=== PATIENT | male | born 1950 | race Caucasian/White ===

== ENCOUNTER 2019-04-22 10:31 | Outpatient (RCR) | payer OTHER, SELFPAY | END 2019-05-10 23:59 | disposition home or self-care (01) | LOC: SOT 10:31 | PROVIDERS: Family Provider Emergency Medicine Emergency Medical Services; PCP Family Medicine Adult Medicine; Referring Provider Orthopaedic Surgery; Visit Provider Orthopaedic Surgery | DX: Z47.1 Aftercare following joint replacement surgery (principal); Z96.692 Finger-joint replacement of left hand | CPT/HCPCS: 97035; 97110; 97112; 97140; 97165 ==

== ENCOUNTER 2019-05-11 06:00 | Outpatient (RCR) | payer OTHER, SELFPAY | END 2019-06-08 23:59 | disposition home or self-care (01) | LOC: SOT 06:00 | PROVIDERS: Family Provider Emergency Medicine Emergency Medical Services; PCP Family Medicine Adult Medicine; Referring Provider Orthopaedic Surgery; Visit Provider Orthopaedic Surgery | DX: Z47.89 Encounter for other orthopedic aftercare (principal) | CPT/HCPCS: 97035; 97110; 97112; 97140 ==

== ENCOUNTER 2019-06-09 06:00 | Outpatient (RCR) | payer OTHER, SELFPAY | END 2019-07-02 23:00 | disposition home or self-care (01) | LOC: SOT 06:00 | PROVIDERS: Family Provider Emergency Medicine Emergency Medical Services; PCP Emergency Medicine Emergency Medical Services; Referring Provider Orthopaedic Surgery; Visit Provider Orthopaedic Surgery | DX: M18.12 Unilateral primary osteoarthritis of first carpometacarpal joint, left hand (principal) | CPT/HCPCS: 97035; 97110; 97112; 97140 ==

== ENCOUNTER 2019-06-12 11:02 | Outpatient (CLI) | payer OTHER, SELFPAY ==
--- NOTE | 2019-06-12 12:47 | ONCRAD EPV_ITS ---
Radiation Oncology Established Patient Visit Patient: Beryl MR#: [id number] : 1950> Age: 68> Sex: Male> Dictated by: Dr. Jomar Gayle Date of Service: 06/12/2019 Diagnosis: C61 - Malignant neoplasm of prostate, Diagnosed 01/19/2017 (Active) Stage X, T2a, NX, MX Radiotherapy to Date: Course: C1 Treatment Site: [id number] Ref. ID: [id number] Energy: 6X Dose/Fx (cGy): 200 #Fx: Dose Correction (cGy): 0 Total Dose (cGy): 5,400 Start Date: 05/02/2017 End Date: 06/09/2017 Elapsed Days: 38 Course: C1 Treatment Site: [id number] Ref. ID: [id number] Energy: 6X Dose/Fx (cGy): 200 #Fx: Dose Correction (cGy): 0 Total Dose (cGy): 800 Start Date: 06/12/2017 End Date: 06/15/2017 Elapsed Days: 3 Course: C1 Treatment Site: [id number] Ref. ID: [id number] Energy: 6X Dose/Fx (cGy): 200 #Fx: 8 Dose Correction (cGy): 0 Total Dose (cGy): 1,600 Start Date: 06/19/2017 End Date: 06/28/2017 Elapsed Days: 9 Chief Complaint / History of Present Illness: The patient is a 66 year old gentleman diagnosed with T2a, N0, M0 adenocarcinoma of the prostate, [place] score 3+4, PSA 8 ng/ml, intermediate risk disease, s/p combination therapy of ADT + EBRT. He completed ADT after receiving his last injection of one month Eligard in early September 2017. His urinary symptoms has significantly improved compared with that before RT. He has nocturia ???1-2 times per night but denies dysuria, urgency, frequency, weak stream, hematuria or feeling of not emptying bladder after urination. He denies rectal irritation or bleeding. His PSA was 0.13 on 02/20/2018, 0.11 on 08/14/2018 and 0.14 on 02/19/2019. Current Medications: Centrum Silver, glucosamine HCl, magnesium, naproxen Sodium, omeprazole, pravastatin Sodium. Allergies: Penicillins. Current Complaints / Review of Systems: Constitutional - Complains of moderate fatigue. Denies lack of appetite, fever, night sweats and change in weight. Eyes - Denies blurred vision. ENMT - Complains of tinnitus. Denies dysphagia, ear pain, mouth dryness, stomatitis and altered taste. Neck - Complains of neck pain which is chronic. Integumentary - Denies rash. Cardiovascular - Denies arrhythmias and chest pain. Respiratory - Complains of dyspnea associated with normal activity. Denies cough and wheezing. Gastrointestinal - Complains of occasional constipation. Complains of occasional diarrhea. Complains of heartburn / dyspepsia. Complains of hemorrhoids. Denies abdominal pain, melena / GI bleeding, nausea and vomiting. Genitourinary (M) - Complains of nocturia gets up about 1 to 2 times per night. Denies dysuria, frequency, hematuria and urgency. Musculoskeletal - Complains of arthritis and joint pain in the lower back, knees, and both thumbs. Denies bone pain. Neurologic - Denies dizziness, abnormal gait and headaches. Endocrine - Denies diabetes and thyroid disease. Hematologic/Lymphatic - Denies tender or enlarged lymph nodes.. Vital Signs: Performed on 06/12/2019 11:23 AM BMI - 25.833 kg/m2 (high), Height - 73.00 in, Weight - 195.8 lbs, Temperature - 97.8 f, Pulse - 89, Respiration - 18, O2 Sat - 97 %, Pain - 2 and BP - 129/ 84 mm(hg). Physical Exam: General: Alert and oriented x 3. No acute distress. HEENT: Normocephalic, atraumatic. Extraocular Movements Intact: Pupils Equal, Round, Reactive to Light and Accommodation: Sclerae anicteric. Oral cavity is clear without lesions, masses or ulcers. NECK: Supple without supraclavicular or jugular lymphadenopathy. LUNGS: Clear to auscultation bilaterally without rales, rhonchi or wheeze. HEART: Regular rate and rhythm, normal S1 and S2 without murmur, gallop or rub. MUSCULOSKELETAL: No tenderness or percussion pain over the axial skeleton, scapulae or pelvis. ABDOMEN: Soft, nontender, nondistended without masses or organomegaly. Bowel sounds are present. EXTREMITIES: No peripheral edema is identified. Limited motor and sensory examination are grossly intact and symmetric bilaterally. NEUROLOGIC: Cranial nerves II ???XII are grossly intact. Normal sensation, strength 5/5 in all extremities, normal gait, no ataxia. Performance Status: 1 - No physically strenuous activity, but ambulatory and able to carry out light or sedentary work (e.g. office work, light house work). (ECOG) Lab: see HPI Pathology: adenocarcinoma of prostate Imaging: none pending Impression: There is no clinical evidence of recurrent prostate cancer and no evidence of late radiation toxicities. Plan: The patient will check PSA at [facility] in about 3 months and then follow up with us afterwards. He is instructed to contact us with any questions or issues. Signed by: 06/12/2019 12:45:40 PM <<Signature on File>> CPT Code: CPT Code: Signed By: Dr. Jomar Gayle, 06/12/2019 12:45:41 PM <<Signature on File>>
== END 2019-06-12 11:03 | disposition home or self-care (01) ==
PROVIDERS: Family Provider Emergency Medicine Emergency Medical Services; PCP Emergency Medicine Emergency Medical Services; Visit Provider Radiology Radiation Oncology
DX: Z08 Encounter for follow-up examination after completed treatment for malignant neoplasm (principal); Z85.46 Personal history of malignant neoplasm of prostate; Z92.3 Personal history of irradiation
CPT/HCPCS: 99213

== ENCOUNTER → 2020-01-27 15:53 | Outpatient (BNVA) | payer OTHER, SELFPAY | PROVIDERS: PCP Emergency Medicine Emergency Medical Services; Visit Provider Emergency Medicine Emergency Medical Services | DX: Z11.59 Encounter for screening for other viral diseases (principal); Z20.828 Contact with and (suspected) exposure to other viral communicable diseases | CPT/HCPCS: 87635 ==

== ENCOUNTER → 2021-01-20 13:24 | Outpatient (BNVA) | payer OTHER, SELFPAY | PROVIDERS: PCP Emergency Medicine Emergency Medical Services; Visit Provider Surgery | DX: Z01.812 Encounter for preprocedural laboratory examination (principal); Z20.822 Contact with and (suspected) exposure to COVID-19 | CPT/HCPCS: 87635 ==

== ENCOUNTER 2021-01-25 06:40 | Day surgery (SDC) | payer OTHER, SELFPAY ==
[2021-01-21 10:32] VITALS: BMI 25.7
--- NOTE | 2021-01-25 07:00 | W.PM.OPSUD ---
Surgery/Procedure H&P Update DATE OF PROCEDURE: January 25, 2021 DATE H&P PERFORMED: 12/29/20 H&P UPDATE INFORMATION: I have reviewed H&P completed within last 30 days, I have examined patient prior to procedure and No changes to prior documentation PREOP DIAGNOSIS: screening colonoscopy PLANNED PROCEDURE: Operation Date: 01/25/21 08:00 Proposed Procedures p Colonoscopy 23122 R19.5(Not Applicable) - Anthony Hughes MD
--- NOTE | 2021-01-25 08:04 | ANES.PREANE2 ---
Pre-Anesthetic Assessment Pre-Anesthetic Assessment: Height/Weight: Height 1.83 m Weight 86.183 kg Preop Diagnosis: screening colonoscopy Proposed Procedure: Operation Date: 01/25/21 08:00 Proposed Procedures p Colonoscopy 72155 R19.5(Not Applicable) - Anthony Hughes MD Was Beta Keaton taken within 24 hours: N/A Was Clonidine taken within 24 hours: N/A Social: Social History: No alcohol and No tobacco Exam: Pre-Anes Outpt Exam: alert, oriented x 3, clear to auscultation bilaterally and regular rate & rhythm Airway: Submandibular: WNL Cervical ROM: WNL MP: 2 Dentition: Chipped GI: GI: GERD Metabolic: Metabolic: Hyperlipidemia Anesthetic Plan: ASA status: 2 Anesthesia: MAC Risk of > 500 ml blood loss (7ml/kg in children): No PFSH Anesthesia PFSH: Medical History (Updated 12/29/20 @ 10:38 by Anthony Hughes MD) COVID-19 GERD (gastroesophageal reflux disease) Hypercholesteremia Prostate cancer Surgical History (Updated 12/29/20 @ 10:38 by Anthony Hughes MD) H/O arthroscopy of left knee [facility] 2018 H/O arthroscopy of right knee [facility] 2017 Status post colonoscopy Family History (Updated 12/29/20 @ 10:32 by Stan Palacios) Brother Cancer Denies family history of Anesthesia complication Bleeding disorder Social History (Updated 12/29/20 @ 10:34 by Stan Palacios) Smoking and tobacco status: never smoked Alcohol intake: never History of recent travel: No Data Anesthesia Cardiac Studies: No Data to Display
[2021-01-25 08:06] VITALS: BP 150/96; PULSE 84; RESP 16; TEMP 36.6; O2SAT 96
[2021-01-25] MEDS: sodium chloride 0.9% 1,000 ML 30 ML IV (08:20)
[2021-01-25 09:07] VITALS: BP 121/71; PULSE 73; RESP 16; TEMP 36.1; O2SAT 95
[2021-01-25 09:18] VITALS: BP 125/81; PULSE 77; RESP 18; O2SAT 97
--- NOTE | 2021-01-25 15:53 | ANE.PACU2 ---
Inpatient post-anesthesia follow up: Airway intact: Yes Vital signs: Temperature 97.0 F Pulse Rate 77 Respiratory Rate 18 Blood Pressure 125/81 Pulse Oximetry 97 Oxygen Delivery Me thod Room Air Oxygen Flow Rate 4 Fraction of Inspir ed Oxygen Hydration adequate: Yes Nausea and vomiting: No Pain level: 1 Mental status: Baseline
== END 2021-01-25 09:37 | disposition home or self-care (01) ==
PROVIDERS: PCP Emergency Medicine Emergency Medical Services; Visit Provider Surgery
PROC: 0DJD8ZZ Inspection of Lower Intestinal Tract, Via Natural or Artificial Opening Endoscopic (ICD-10-PCS; CPT 45378; principal; 2021-01-25 08:00)
DX: Z12.11 Encounter for screening for malignant neoplasm of colon (principal); K57.30 Diverticulosis of large intestine without perforation or abscess without bleeding; D12.2 Benign neoplasm of ascending colon; D12.5 Benign neoplasm of sigmoid colon; K21.9 Gastro-esophageal reflux disease without esophagitis; E78.5 Hyperlipidemia, unspecified; Z86.16 Personal history of COVID-19; E78.00 Pure hypercholesterolemia, unspecified; Z85.46 Personal history of malignant neoplasm of prostate
CPT/HCPCS: 45380; 45385; 88305; 96360; J2704; J7030

== ENCOUNTER → 2021-03-18 10:26 | Outpatient (BNVA) | payer OTHER, SELFPAY | PROVIDERS: PCP Emergency Medicine Emergency Medical Services; Visit Provider Internal Medicine | DX: M19.90 Unspecified osteoarthritis, unspecified site (principal); M79.10 Myalgia, unspecified site; Z11.59 Encounter for screening for other viral diseases; Z79.899 Other long term (current) drug therapy | CPT/HCPCS: 99204 ==

== ENCOUNTER 2021-03-18 12:51 | Outpatient (CLI) | payer OTHER, SELFPAY ==
--- NOTE | 2021-03-18 12:57 | XR_ITS ---
WS: [email or web address] Exam: XR cervical spine fl/ex [id number] Date/Time of Exam: 03/18/2021 1:30 PM Reason For Exam: M19.90 - Unspecified osteoarthritis, unspecified site Comparison 10/24/2005. No acute fracture or dislocation. No flexion or extension instability. Degenerative disc change at C6 -7. Mild facet DJD. Normal paraspinal soft tissues. XR/XR cervical spine fl/ex [id number] IMPRESSION: 1. No fracture or malalignment. No instability. 2. Mild degenerative changes.
--- NOTE | 2021-03-18 12:57 | XR_ITS ---
WS: [email or web address] Exam: XR hand LT 2V [id number] Date/Time of Exam: 03/18/2021 1:30 PM Reason For Exam: M19.90 - Unspecified osteoarthritis, unspecified site Exam: XR hand LT 2V [id number] No acute fracture or dislocation. There are surgical absence of the greater multangular. Several smal l bone fragments noted at this site. Degenerative change at the articulation of the scaphoid and less er multangular. Minimal IP joint DJD. No soft tissue foreign bodies. XR/XR hand LT 2V [id number] IMPRESSION: 1. Mild IP joint DJD. 2. Surgical absence of the greater multangular. Degenerative changes at the art iculation of the scaphoid and lesser multangular.
--- NOTE | 2021-03-18 12:57 | XR_ITS ---
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 Findings: The lungs are clear and fully expanded. Costophrenic angles are sharp. No infiltrates. Bronchovascula r relief appears normal. Cardiac silhouette is unremarkable. Bony elements are intact. XR/XR chest 2V* [id number] IMPRESSION: Unremarkable chest radiograph.
--- NOTE | 2021-03-18 12:57 | XR_ITS ---
WS: [email or web address] Exam: XR foot RT 2V [id number] Date/Time of Exam: 03/18/2021 1:30 PM Reason For Exam: M25.50 - Pain in unspecified joint No fracture or dislocation noted. Mild bunion deformity. Plantar heel spur. Vascular calcifications s een along the anterior margin of the ankle XR/XR foot RT 2V [id number] IMPRESSION: 1. No fracture or dislocation. 2. Mild bunion deformity. Calcaneal spur.
--- NOTE | 2021-03-18 12:57 | XR_ITS ---
WS: [email or web address] Exam: XR foot LT 2V [id number] Date/Time of Exam: 03/18/2021 1:30 PM Reason For Exam: M25.50 - Pain in unspecified joint Comparison 03/31/2008. No fracture or dislocation. No soft tissue foreign bodies are seen. Mild subcortical cyst formation n oted in the head of the first metatarsal. No change since prior study. XR/XR foot LT 2V 14701 IMPRESSION: 1. No fracture or other significant finding.
--- NOTE | 2021-03-18 12:57 | XR_ITS ---
WS: [email or web address] Exam: XR hand RT 2V [id number] Date/Time of Exam: 03/18/2021 1:30 PM Reason For Exam: M19.90 - Unspecified osteoarthritis, unspecified site No fracture or dislocation. Moderate osteoarthritis involving the CMC joint of the thumb and the linette culation of the scaphoid and greater and lesser multangular. There is separation of the scaphoid and capitate which may indicate intercarpal ligament tear. Subcortical cyst formation in the capitate. Pa nim[place]osa DJD of the IP joints. XR/XR hand RT 2V [id number] IMPRESSION: 1. Degenerative change at the CMC joint of the thumb and the articulation of th e scaphoid and greater and lesser multangular. 2. Degenerative changes in the IP joints.
--- NOTE | 2021-03-18 12:57 | XR_ITS ---
WS: [email or web address] Exam: XR thoracic spine 3V* [id number] Date/Time of Exam: 03/18/2021 1:30 PM Reason For Exam: M19.90 - Unspecified osteoarthritis, unspecified site No acute fracture or dislocation. Mild dextroscoliosis. Paraspinal soft tissues are unremarkable. XR/XR thoracic spine 3V* [id number] IMPRESSION: 1. No fracture or malalignment. 2. Slight dextroscoliosis.
--- NOTE | 2021-03-18 12:57 | XR_ITS ---
WS: [email or web address] Exam: XR lumbar spine 2-3V* [id number] Date/Time of Exam: 03/18/2021 1:30 PM Reason For Exam: M19.90 - Unspecified osteoarthritis, unspecified site No fracture or dislocation. Degenerative vacuum disc at L4-5. Facet DJD at L5-S1. Slight levoscoliosi s. XR/XR lumbar spine 2-3V* [id number] IMPRESSION: 1. Degenerative changes of the lower lumbar spine but no fracture or malalignme nt. 2. Slight levoscoliosis that may be positional.
--- NOTE | 2021-03-18 12:57 | XR_ITS ---
WS: [email or web address] Exam: XR sacroiliac jts m 3V [id number] Date/Time of Exam: 03/18/2021 1:30 PM Reason For Exam: L40.9 - Psoriasis, unspecified No fracture or dislocation noted. The SI joints are open. No sign of bone destruction. XR/XR sacroiliac jts m 3V [id number] IMPRESSION: 1. Unremarkable right and left SI joints.
[2021-03-18 13:42] LABS: Basophils # 0.1 10^3/uL (0.0-0.1); Basophils % 0.8 %; Eosinophils # 0.1 10^3/uL (0.0-0.8); Eosinophils % 1.8 %; Hematocrit 47.3 % (42.0-52.0); Hemoglobin 15.8 g/dL (11.7-16.6); Lymphocytes # 1.1 10^3/uL (0.8-4.8); Lymphocytes % 16.3 %; Mean Corpuscular HGB Conc 33.4 g/dL (30.0-36.0); Mean Corpuscular Hemoglobin 30.8 pg (28.0-34.0); Mean Corpuscular Volume 92.2 fl (80-94); Mean Platelet Volume 10.4 fL (7.4-10.4); Monocytes # 0.6 10^3/uL (0.2-0.9); Monocytes % 8.4 %; Neutrophils # 4.71 10^3/uL (1.8-7.7); Neutrophils % 72.2 %; Nucleated Red Blood Cells % 0 %; Platelet Count 220 10^3/cmm (130-400); Red Blood Count 5.13 10^6/uL (4.1-5.3); Red Cell Distribution Width 12.4 % (12.1-15.1); White Blood Count 6.5 10^3/uL (4.0-10.0)
[2021-03-18 14:07] LABS: 25 Hydroxy Vitamin D 28 ng/mL (30-100); Alanine Aminotransferase 26 U/L (0-41); Albumin Level 4.3 g/dL (3.5-5.2); Alkaline Phosphatase 100 IU/L (40-130); Anion Gap 12.2 (5-19); Aspartate Amino Transferase 21 U/L (0-40); Blood Urea Nitrogen 16 mg/dL (8-23); Calcium 9.2 mg/dL (8.5-10.5); Carbon Dioxide 28 mmol/L (22-29); Chloride 104 mmol/L (98-107); Creatine Phosphokinase 202 U/L (39-308); Ferritin 246 ng/mL (30-400); Glucose 89 mg/dL (65-115); Iron 80 ug/dL (59-158); Osmolality Calculated 291 mOsm/kg (285-295); Phosphorus 3.6 mg/dL (2.5-4.5); Potassium 4.2 mmol/L (3.5-5.1); Sodium 140 mmol/L (136-145); Thyroid Stimulating Hormone 2.53 uIU/mL (0.27-4.20); Total Bilirubin 0.3 mg/dL (0.15-1.2); Total Protein 7.3 g/dL (6.6-8.7); Uric Acid 4.5 mg/dL (3.4-7.0); Vitamin B12 542 pg/mL (232-1245)
[2021-03-18 14:21] LABS: Hepatitis B Core AB, Total Non-Reactive (Nonreactive); Hepatitis B Surface Antigen Non-Reactive (Nonreactive); Hepatitis C Virus Antibody Non-Reactive (Nonreactive)
[2021-03-19 12:23] LABS: COMPLEMENT, TOTAL (CH50) >60 U/mL (31-60)
[2021-03-19 12:47] LABS: COMPLEMENT COMPONENT C3C 143 mg/dL (82-185); COMPLEMENT COMPONENT C4C 26 mg/dL (15-53)
[2021-03-19 14:00] LABS: Erythrocyte Sedimentation Rate 6 mm/hr (0-10)
[2021-03-19 14:47] LABS: Cyclic Citrullinated Peptide <16 UNITS
[2021-03-19 15:01] LABS: Lymes IGG WB <0.90 index
[2021-03-19 15:35] LABS: THYROID PEROXIDASE ANTIBODIES 1 IU/mL (<9)
[2021-03-19 16:21] LABS: CENTROMERE B ANTIBODY <1.0 NEG AI (<1.0 NEG); JO-1 ANTIBODY <1.0 NEG AI (<1.0 NEG); RNP ANTIBODY <1.0 NEG AI (<1.0 NEG); SCL-70 ANTIBODY <1.0 NEG AI (<1.0 NEG); SJOGREN'S ANTIBODY (SS-A) <1.0 NEG AI (<1.0 NEG); SM ANTIBODY <1.0 NEG AI (<1.0 NEG); SS-B <1.0 NEG AI (<1.0 NEG)
[2021-03-19 16:58] LABS: ANA SCREEN, IFA NEGATIVE (NEGATIVE)
[2021-03-20 10:36] LABS: HLA-B27 NEGATIVE (NEGATIVE)
[2021-03-22 13:56] LABS: Immunoglobulin A 207 mg/dL (70-320)
[2021-03-22 18:51] LABS: Vitamin B1(Thiamin) Plas/Ser 19 nmol/L (8-30)
[2021-03-23 16:59] LABS: DNA AB (DS) CRITHIDIA,IFA NEGATIVE (NEGATIVE)
[2021-03-24 06:08] LABS: Gliadin Ab.IgA <1.0 U/mL; Gliadin Ab.IgG <1.0 U/mL; Tissue Transglutaminase IgA Ab <1.0 U/mL; Tissue transglutaminase Ab.IgG <1.0 U/mL
== END 2021-03-18 12:52 | disposition home or self-care (01) ==
LOC: RAD 12:53
PROVIDERS: PCP Emergency Medicine Emergency Medical Services; Visit Provider Internal Medicine
DX: L40.9 Psoriasis, unspecified (principal); M19.90 Unspecified osteoarthritis, unspecified site; M79.10 Myalgia, unspecified site; Z79.899 Other long term (current) drug therapy; M25.50 Pain in unspecified joint; M45.0 Ankylosing spondylitis of multiple sites in spine; Z11.59 Encounter for screening for other viral diseases
CPT/HCPCS: 71046; 72040; 72072; 72100; 72202; 73120; 73620; 80053; 82306; 82550; 82607; 82728; 82784; 83516; 83540; 83735; 84100; 84425; 84443; 84550; 85025; 85651; 86140; 86160; 86162; 86200; 86235; 86255; 86376; 86431; 86617; 86704; 86803; 86812; 87340

== ENCOUNTER → 2021-04-19 14:20 | Outpatient (BNVA) | payer OTHER, SELFPAY | PROVIDERS: PCP Emergency Medicine Emergency Medical Services; Visit Provider Internal Medicine | DX: M19.90 Unspecified osteoarthritis, unspecified site (principal); M41.9 Scoliosis, unspecified; M79.671 Pain in right foot; M79.10 Myalgia, unspecified site | CPT/HCPCS: 99214 ==

== ENCOUNTER 2021-07-29 11:20 | Outpatient (CLI) | payer OTHER, SELFPAY ==
[2021-07-29 12:56] LABS: Basophils # 0.1 10^3/uL (0.0-0.1); Basophils % 0.9 %; Eosinophils # 0.2 10^3/uL (0.0-0.8); Eosinophils % 3.3 %; Hematocrit 42.9 % (42.0-52.0); Hemoglobin 14.4 g/dL (11.7-16.6); Lymphocytes # 1.5 10^3/uL (0.8-4.8); Mean Corpuscular HGB Conc 33.6 g/dL (30.0-36.0); Mean Corpuscular Hemoglobin 31.6 pg (28.0-34.0); Mean Corpuscular Volume 94.3 fl (80-94); Mean Platelet Volume 10.7 fL (7.4-10.4); Monocytes # 0.7 10^3/uL (0.2-0.9); Monocytes % 12.3 %; Neutrophils # 3.28 10^3/uL (1.8-7.7); Nucleated Red Blood Cells % 0 %; Platelet Count 199 10^3/cmm (130-400); Red Blood Count 4.55 10^6/uL (4.1-5.3); Red Cell Distribution Width 13.2 % (12.1-15.1); White Blood Count 5.8 10^3/uL (4.0-10.0)
[2021-07-29 13:04] LABS: Erythrocyte Sedimentation Rate 13 mm/hr (0-10)
[2021-07-29 13:45] LABS: Alanine Aminotransferase 20 U/L (0-41); Albumin Level 4.1 g/dL (3.5-5.2); Alkaline Phosphatase 79 IU/L (40-130); Anion Gap 12.1 (5-19); Aspartate Amino Transferase 27 U/L (0-40); Blood Urea Nitrogen 22 mg/dL (8-23); C Reactive Protein 12.2 mg/L (0.0-4.9); Calcium 8.6 mg/dL (8.5-10.5); Carbon Dioxide 28 mmol/L (22-29); Chloride 106 mmol/L (98-107); Globulin 3.4 g/dL (1.3-4.6); Glucose 94 mg/dL (65-115); Osmolality Calculated 297 mOsm/kg (285-295); Potassium 4.1 mmol/L (3.5-5.1); Sodium 142 mmol/L (136-145); Total Bilirubin 0.5 mg/dL (0.15-1.2); Total Protein 7.5 g/dL (6.6-8.7)
== END 2021-07-29 11:21 | disposition home or self-care (01) ==
LOC: LAB 11:21
PROVIDERS: PCP Emergency Medicine Emergency Medical Services; Visit Provider Internal Medicine
DX: M41.9 Scoliosis, unspecified (principal); M79.10 Myalgia, unspecified site; Z79.899 Other long term (current) drug therapy
CPT/HCPCS: 36415; 80053; 85025; 85651; 86140

== ENCOUNTER → 2021-08-03 14:37 | Outpatient (BNVA) | payer OTHER, SELFPAY | PROVIDERS: PCP Emergency Medicine Emergency Medical Services; Visit Provider Internal Medicine | DX: M19.90 Unspecified osteoarthritis, unspecified site (principal); M41.9 Scoliosis, unspecified; R53.83 Other fatigue; M79.10 Myalgia, unspecified site; Z79.899 Other long term (current) drug therapy | CPT/HCPCS: 99214 ==

== ENCOUNTER → 2021-09-08 10:32 | Outpatient (BNVA) | payer OTHER, SELFPAY | PROVIDERS: PCP Emergency Medicine Emergency Medical Services; Visit Provider Podiatrist Foot & Ankle Surgery | DX: M20.41 Other hammer toe(s) (acquired), right foot (principal); M20.42 Other hammer toe(s) (acquired), left foot; M21.611 Bunion of right foot; M21.612 Bunion of left foot; M21.621 Bunionette of right foot; M25.871 Other specified joint disorders, right ankle and foot; M79.672 Pain in left foot; M79.671 Pain in right foot | CPT/HCPCS: 99213; 99214 ==

== ENCOUNTER → 2022-01-19 10:49 | Outpatient (BNVA) | payer OTHER, SELFPAY | PROVIDERS: PCP Emergency Medicine Emergency Medical Services; Visit Provider Podiatrist Foot & Ankle Surgery | DX: M20.41 Other hammer toe(s) (acquired), right foot (principal); M21.611 Bunion of right foot; M21.612 Bunion of left foot; M20.42 Other hammer toe(s) (acquired), left foot; M21.621 Bunionette of right foot; M25.871 Other specified joint disorders, right ankle and foot | CPT/HCPCS: 99213; 99214 ==

== ENCOUNTER → 2022-10-20 09:41 | Outpatient (BNVA) | payer OTHER, SELFPAY | PROVIDERS: PCP Emergency Medicine Emergency Medical Services; Visit Provider Internal Medicine Cardiovascular Disease | DX: R00.2 Palpitations (principal) | CPT/HCPCS: 93225 ==

== ENCOUNTER → 2025-02-06 09:40 | Outpatient (BNVA) | payer OTHER, SELFPAY | PROVIDERS: PCP Emergency Medicine Emergency Medical Services; Visit Provider Nurse Practitioner Family | DX: S60.00XA Contusion of unspecified finger without damage to nail, initial encounter (principal); S60.012A Contusion of left thumb without damage to nail, initial encounter; L72.0 Epidermal cyst; L73.8 Other specified follicular disorders; L82.0 Inflamed seborrheic keratosis; L29.89 Other pruritus; D48.5 Neoplasm of uncertain behavior of skin; L57.0 Actinic keratosis; X58.XXXA Exposure to other specified factors, initial encounter | CPT/HCPCS: 11102; 17000; 17110; 99203 ==